=== PATIENT | female | born 1995 | race Caucasian/White ===

== ENCOUNTER 2022-07-01 17:32 | Emergency (ER) | payer MEDICAID ==
[~2022-07-01] VITALS: Ht 157.5 cm; Wt 92.0 kg
[2022-07-01] MEDS ORDERED: HYDROCODONE/ACETAMINOPHEN 5/325MG TABLET PO STA (20:11)
[2022-07-01 20:34] LABS: BASOPHILS % 0.4 % (0.0-2.0); EOSINOPHILS % 2.2 % (0.0-5.0); HEMATOCRIT. 37.7 % (36.0-48.0); HEMOGLOBIN. 12.3 g/dL (12.0-16.0); LYMPHOCYTES % 21.1 % (20.0-50.0); MEAN CORPUSCULAR HEMOGLOBIN 26.1 pg (28.0-32.0); MEAN CORPUSCULAR VOLUME 79.6 fL (81.0-99.0); MEAN PLATELET VOLUME 9.3 fl (7.4-10.4); MONOCYTES % 5.3 % (2.0-8.0); PLATELET 267 x1000/uL (130-400); RED BLOOD CELL COUNT 4.73 mill/uL (4.2-5.4)
[2022-07-01 20:48] LABS: HCG SCREEN NEGATIVE
[2022-07-01 21:10] LABS: CHLORIDE 111 mEq/L (98-107)
[2022-07-01 21:27] LABS: CLARITY URINE CLOUDY (CLEAR); COLOR URINE YELLOW (YELLOW); KETONES URINE TRACE (NEGATIVE); LEUKOCYTE ESTERASE URINE 3+ (NEGATIVE); NITRITE URINE NEGATIVE (NEGATIVE); OCCULT BLOOD URINE NEGATIVE (NEGATIVE); PROTEIN URINE 1+ (NEGATIVE); SPECIFIC GRAVITY URINE 1.025 (1.005-1.030)
[2022-07-01 21:33] VITALS: BP 111/71
[2022-07-01] MEDS ORDERED: HYDR-4001 MT (21:42)
[2022-07-01] MEDS ORDERED: NAP5EC MT (21:42)
[2022-07-01] MEDS ORDERED: ONDA4TAB50 MT (21:42)
== END 2022-07-01 22:48 | disposition home or self-care (01) ==
LOC: ER 17:32
DX: K80.50 Calculus of bile duct without cholangitis or cholecystitis without obstruction (principal); K80.20 Calculus of gallbladder without cholecystitis without obstruction; K76.0 Fatty (change of) liver, not elsewhere classified; F41.9 Anxiety disorder, unspecified
CPT/HCPCS: 36415; 76705; 80053; 81003; 83605; 84703; 85025; 99284

== ENCOUNTER 2022-11-19 08:04 | Emergency (ER) | payer MEDICAID ==
[~2022-11-19] VITALS: Ht 160 cm; Wt 97.0 kg
[~2022-11-19 08:04] MED LIST: HYDR-4001 MT; NAP5EC MT; ONDA4TAB50 MT
[2022-11-19] MEDS ORDERED: ACETAMINOPHEN 325MG TABLET PO STA (09:32)
[2022-11-19 10:40] LABS: CLARITY URINE CLOUDY (CLEAR); COLOR URINE YELLOW (YELLOW); KETONES URINE NEGATIVE (NEGATIVE); LEUKOCYTE ESTERASE URINE 2+ (NEGATIVE); NITRITE URINE NEGATIVE (NEGATIVE); OCCULT BLOOD URINE NEGATIVE (NEGATIVE); PROTEIN URINE NEGATIVE (NEGATIVE); SPECIFIC GRAVITY URINE 1.021 (1.005-1.030); UROBILINOGEN URINE 0.2 E.U./dL (0.2-1.0)
[2022-11-19 11:08] LABS: BASOPHILS % 0.4 % (0.0-2.0); EOSINOPHILS % 5.3 % (0.0-5.0); HEMOGLOBIN. 11.9 g/dL (12.0-16.0); LYMPHOCYTES % 24.1 % (20.0-50.0); MEAN CORPUSCULAR HEMOGLOBIN 26.2 pg (28.0-32.0); MEAN CORPUSCULAR VOLUME 79.1 fL (81.0-99.0); MEAN PLATELET VOLUME 9.1 fl (7.4-10.4); MONOCYTES % 5.1 % (2.0-8.0); NEUTROPHILS % 65.1 % (40.0-76.0); PLATELET 314 x1000/uL (130-400); RED BLOOD CELL COUNT 4.56 mill/uL (4.2-5.4); RED CELL DISTRIBUTION WIDTH 15.2 % (11.6-14.6)
[2022-11-19 11:09] LABS: CHLORIDE 112 mEq/L (98-107)
[2022-11-19 11:59] VITALS: BP 128/85
== END 2022-11-19 12:01 | disposition home or self-care (01) ==
LOC: ER 08:04
DX: R10.9 Unspecified abdominal pain (principal)
CPT/HCPCS: 36415; 74176; 80053; 81003; 81025; 85025; 87077; 87186; 99284

== ENCOUNTER 2023-03-06 16:59 | Emergency (ER) | payer MEDICAID ==
[~2023-03-06] VITALS: Ht 162.6 cm; Wt 105.0 kg
[2023-03-06 17:06] VITALS: BP 124/80; TEMP 98.3; O2SAT 99
[2023-03-06 17:21] VITALS: PULSE 78; RESP 20
[2023-03-06] MEDS ORDERED: NAPR-1176 MT (19:45)
[2023-03-06] MEDS ORDERED: CYCL10TA21 MT (19:45)
[2023-03-06 22:44] LABS: CLARITY URINE CLOUDY (CLEAR); COLOR URINE YELLOW (YELLOW); GLUCOSE URINE NEGATIVE (NEGATIVE); KETONES URINE TRACE (NEGATIVE); LEUKOCYTE ESTERASE URINE 2+ (NEGATIVE); NITRITE URINE POSITIVE (NEGATIVE); OCCULT BLOOD URINE 1+ (NEGATIVE); PH URINE 6.5 (4.5-8.0); PROTEIN URINE NEGATIVE (NEGATIVE); SPECIFIC GRAVITY URINE 1.024 (1.005-1.030)
[2023-03-06 22:56] LABS: BACTERIA URINE 3+; SQUAMOUS EPITHELIAL CELL URINE FEW /lpf (RARE/1+)
[2023-03-06 22:57] LABS: CALCIUM OXALATE CRYSTALS URINE 1+ /lpf
== END 2023-03-06 21:48 | disposition home or self-care (01) ==
LOC: ER 16:59
DX: M54.9 Dorsalgia, unspecified (principal)
CPT/HCPCS: 81003; 81025; 99283